=== PATIENT | male | born 1995 | race Asian ===

== ENCOUNTER 2022-07-25 16:12 | Emergency (ER) | payer MEDICAID ==
[~2022-07-25] VITALS: Ht 172.7 cm; Wt 73.0 kg
[2022-07-25 16:16] VITALS: BP 126/74
== END 2022-07-25 22:13 | disposition home or self-care (01) ==
LOC: ER 16:12
DX: R05.3 Chronic cough (principal); R09.81 Nasal congestion; J34.89 Other specified disorders of nose and nasal sinuses; Q90.9 Down syndrome, unspecified
CPT/HCPCS: 71045; 99283